=== PATIENT | female | born 1945 | race Asian ===

== ENCOUNTER 2018-06-29 15:46 | Emergency (ER) | payer OTHER ==
[~2018-06-29] VITALS: Ht 152.4 cm; Wt 45.8 kg
[2018-06-29 16:33] VITALS: Ht 152.4 cm; Wt 45.8 kg
[2018-06-29 18:36] VITALS: BP 140/60
== END 2018-06-29 18:36 | disposition home or self-care (01) ==
LOC: ED 15:46
DX: S46.911A Strain of unspecified muscle, fascia and tendon at shoulder and upper arm level, right arm, initial encounter (principal); R07.89 Other chest pain; R91.8 Other nonspecific abnormal finding of lung field; V48.6XXA Car passenger injured in noncollision transport accident in traffic accident, initial encounter; Y93.89 Activity, other specified; Y92.488 Other paved roadways as the place of occurrence of the external cause; Y99.8 Other external cause status